=== PATIENT | female | born 1975 | race Caucasian/White ===

== ENCOUNTER 2022-02-20 15:56 | Emergency (ER) | payer BC ==
[2022-02-20 18:23] LABS: HEMOGLOBIN 13.2 gm/dl (12.3-15.3); RED BLOOD COUNT 4.72 M/UL (4.00-5.10); WHITE BLOOD COUNT 8.3 K/UL (4.5-11.0)
[2022-02-20 19:07] LABS: BUN/CREATININE RATIO 13 (0-10)
[2022-02-20] MEDS ORDERED: OMEPRAZOLE20 M1 PO (20:49)
[2022-02-20] MEDS ORDERED: PEPCID20 MG PO (20:56)
== END 2022-02-20 21:09 | disposition home or self-care (01) ==
LOC: ER1 15:56
DX: R07.89 Other chest pain (principal); E11.9 Type 2 diabetes mellitus without complications; F17.290 Nicotine dependence, other tobacco product, uncomplicated; Z88.5 Allergy status to narcotic agent; Z88.8 Allergy status to other drugs, medicaments and biological substances
CPT/HCPCS: 71045; 80053; 82550; 82553; 83690; 84484; 85025; 93005; 99285